=== PATIENT | female | born 1985 | race African-American/Black ===

== ENCOUNTER → 2017-10-09 | Outpatient (CLI) | payer OTHER ==
[2017-10-09 09:17] LABS: ALBUMIN 3.6 g/dL (3.5-5.0); BILIRUBIN,TOTAL 0.2 mg/dL (0.2-1.0); CREATININE 0.7 mg/dL (0.5-1.5); POTASSIUM 3.8 mmol/L (3.5-5.1); TOTAL PROTEIN, SERUM 7.1 g/dL (6.0-8.3)
== END | disposition home or self-care (01) ==
LOC: LAB 08:09
PROVIDERS: ATTEND Internal Medicine
DX: E78.2 Mixed hyperlipidemia (principal)
CPT/HCPCS: 36415; 80053; 80061

== ENCOUNTER → 2018-01-10 | Outpatient (CLI) | payer OTHER ==
[2018-01-10 09:23] LABS: BASOPHILS % (AUTO) 0.7 % (0.0-5.0); EOSINOPHILS % (AUTO) 2.5 % (0.0-8.0); HEMATOCRIT 36.5 % (36-48); MEAN CORPUSCULAR HEMOGLOBIN 31.2 pg (27.0-33.0); MEAN CORPUSCULAR HGB CONC 33.7 g/dL (32.0-36.0); MEAN CORPUSCULAR VOLUME 92.8 fL (79-99); MONOCYTES % (AUTO) 6.7 % (3.0-13.0); NEUTROPHILS % (AUTO) 61.1 % (40.0-77.0); PLATELET COUNT (AUTO) 244 K/uL (130-400); RED BLOOD CELL COUNT(AUTO) 3.93 MIL/uL (4.00-5.50); RED CELL DISTRIBUTION WIDTH 13.5 % (11.0-15.5); WHITE BLOOD COUNT (AUTO) 8.8 K/uL (4.8-10.8)
[2018-01-10 09:27] LABS: AMPHET/METH SCREEN,URINE NEGATIVE (NEGATIVE); BARBITURATE SCREEN, URINE NEGATIVE (NEGATIVE); BENZODIAZEPINES SCREEN,URINE NEGATIVE (NEGATIVE); CANNABINOID SCREEN,URINE POSITIVE (NEGATIVE); COCAINE SCREEN,URINE NEGATIVE (NEGATIVE); OPIATE SCREEN,URINE NEGATIVE (NEGATIVE); PHENCYCLIDINE SCREEN,URINE NEGATIVE (NEGATIVE)
[2018-01-10 09:35] LABS: ALBUMIN 3.6 g/dL (3.5-5.0); BILIRUBIN,TOTAL 0.5 mg/dL (0.2-1.0); CREATININE 0.8 mg/dL (0.5-1.5); POTASSIUM 3.7 mmol/L (3.5-5.1); TOTAL PROTEIN, SERUM 7.3 g/dL (6.0-8.3)
== END | disposition home or self-care (01) ==
LOC: RAH 08:59
PROVIDERS: ATTEND Internal Medicine
DX: N83.02 Follicular cyst of left ovary (principal); N83.01 Follicular cyst of right ovary
CPT/HCPCS: 36415; 76830; 80053; 80305; 84443; 84703; 85025

== ENCOUNTER → 2018-01-16 | Outpatient (CLI) | payer OTHER | END | disposition home or self-care (01) | LOC: RAH 01-11 15:02 | PROVIDERS: ATTEND Internal Medicine | DX: R10.2 Pelvic and perineal pain (principal) | CPT/HCPCS: 76856 ==

== ENCOUNTER → 2020-01-24 | Outpatient (CLI) | payer OTHER | END | disposition home or self-care (01) | LOC: RAH 11:35 | PROVIDERS: ATTEND Internal Medicine | DX: E04.2 Nontoxic multinodular goiter (principal) | CPT/HCPCS: 76536 ==

== ENCOUNTER → 2022-02-02 | Outpatient (CLI) | payer OTHER ==
[2022-02-02 09:42] LABS: BASOPHILS % (AUTO) 0.8 % (0.0-5.0); EOSINOPHILS % (AUTO) 4.9 % (0.0-8.0); HEMATOCRIT 40.4 % (36-48); LYMPHOCYTES % (AUTO) 32.9 % (21.0-51.0); MEAN CORPUSCULAR HEMOGLOBIN 29.2 pg (27.0-33.0); MEAN CORPUSCULAR HGB CONC 31.9 g/dL (32.0-36.0); MEAN CORPUSCULAR VOLUME 91.4 fL (79-99); MONOCYTES % (AUTO) 8.3 % (3.0-13.0); NEUTROPHILS % (AUTO) 52.9 % (40.0-77.0); PLATELET COUNT (AUTO) 309 K/uL (130-400); RED BLOOD CELL COUNT(AUTO) 4.42 MIL/uL (4.00-5.50); RED CELL DISTRIBUTION WIDTH 13.1 % (11.0-15.5); WHITE BLOOD COUNT (AUTO) 9.1 K/uL (4.8-10.8)
[2022-02-02 09:50] LABS: INR 0.99 (0.85-1.15); PROTHROMBIN TIME 10.8 SEC (9.6-11.6)
[2022-02-02 09:53] LABS: ALBUMIN 3.5 g/dL (3.5-5.0); BILIRUBIN,TOTAL 0.4 mg/dL (0.2-1.0); CREATININE 0.8 mg/dL (0.5-1.5); POTASSIUM 4.2 mmol/L (3.5-5.1); TOTAL PROTEIN, SERUM 7.3 g/dL (6.0-8.3)
== END | disposition home or self-care (01) ==
LOC: LAB 08:17
PROVIDERS: ATTEND Internal Medicine
DX: R93.2 Abnormal findings on diagnostic imaging of liver and biliary tract (principal); R12 Heartburn
CPT/HCPCS: 36415; 80053; 85025; 85610; 87338

== ENCOUNTER → 2022-05-09 | Outpatient (CLI) | payer OTHER | END | disposition home or self-care (01) | LOC: RAH 07:59 | PROVIDERS: ATTEND Internal Medicine Gastroenterology | DX: K82.4 Cholesterolosis of gallbladder (principal); R93.2 Abnormal findings on diagnostic imaging of liver and biliary tract | CPT/HCPCS: 76700 ==

== ENCOUNTER → 2022-06-22 | Outpatient (CLI) | payer OTHER | END | disposition home or self-care (01) | LOC: RAH 14:22 | PROVIDERS: ATTEND Internal Medicine | DX: E04.2 Nontoxic multinodular goiter (principal) | CPT/HCPCS: 76536 ==

== ENCOUNTER → 2022-06-28 | Outpatient (CLI) | payer OTHER ==
[2022-06-28 08:31] LABS: BASOPHILS % (AUTO) 1.3 % (0.0-5.0); EOSINOPHILS % (AUTO) 6.8 % (0.0-8.0); HEMATOCRIT 36.6 % (36-48); MEAN CORPUSCULAR HEMOGLOBIN 29.1 pg (27.0-33.0); MONOCYTES % (AUTO) 9.2 % (3.0-13.0); NEUTROPHILS % (AUTO) 51.4 % (40.0-77.0); PLATELET COUNT (AUTO) 290 K/uL (130-400); RED BLOOD CELL COUNT(AUTO) 4.02 MIL/uL (4.00-5.50); RED CELL DISTRIBUTION WIDTH 13.2 % (11.0-15.5); WHITE BLOOD COUNT (AUTO) 8.7 K/uL (4.8-10.8)
[2022-06-28 08:46] LABS: HEMOGLOBIN A1C 5.9 % (4.0-6.0)
[2022-06-28 09:12] LABS: ALBUMIN 3.2 g/dL (3.5-5.0); CREATININE 0.9 mg/dL (0.5-1.5); POTASSIUM 4.4 mmol/L (3.5-5.1); THYROID STIMULATING HORMONE 1.26 uIU/mL (0.36-3.74)
== END | disposition home or self-care (01) ==
LOC: LAB 08:07
PROVIDERS: ATTEND Surgery
DX: E66.01 Morbid (severe) obesity due to excess calories (principal)
CPT/HCPCS: 36415; 80053; 80061; 82306; 82607; 82728; 83036; 83540; 83550; 84439; 84443; 84590; 85025

== ENCOUNTER → 2023-07-19 | Outpatient (CLI) | payer OTHER ==
[2023-07-19 16:24] LABS: INFLUENZA TYPE A Negative For Type A (NEGATIVE); INFLUENZA TYPE B Negative For Type B (NEGATIVE)
[2023-07-19 16:26] LABS: COVID19 (SARS ANTIGEN RAPID) PRESUMPTIVE NEGATIVE (NEGATIVE)
== END | disposition home or self-care (01) ==
LOC: LAB 14:59
PROVIDERS: ATTEND Internal Medicine
DX: R05.9 Cough, unspecified (principal)
CPT/HCPCS: 87426; 87802; 87804

== ENCOUNTER → 2023-08-02 | Outpatient (CLI) | payer OTHER ==
[2023-08-02 08:32] LABS: BASOPHILS # (AUTO) 0.07 K/uL (0.00-0.20); BASOPHILS % (AUTO) 0.5 % (0.0-5.0); EOSINOPHILS # (AUTO) 0.22 K/uL (0.00-0.70); EOSINOPHILS % (AUTO) 1.4 % (0.0-8.0); HEMATOCRIT 38.9 % (36-48); IMMATURE GRANULOCYTE ABSOLUTE 0.06 K/uL (0-1); LYMPHOCYTES # (AUTO) 2.7 K/uL (1.0-4.8); LYMPHOCYTES % (AUTO) 17.9 % (21.0-51.0); MEAN CORPUSCULAR HEMOGLOBIN 29.8 pg (27.0-33.0); MEAN CORPUSCULAR HGB CONC 32.6 g/dL (32.0-36.0); MEAN CORPUSCULAR VOLUME 91.3 fL (79-99); MONOCYTES # (AUTO) 0.9 K/uL (0.1-1.0); MONOCYTES % (AUTO) 5.7 % (3.0-13.0); NEUTROPHILS # (AUTO) 11.3 K/uL (1.8-7.7); NEUTROPHILS % (AUTO) 74.1 % (40.0-77.0); PLATELET COUNT (AUTO) 415 K/uL (130-400); RED BLOOD CELL COUNT(AUTO) 4.26 MIL/uL (4.00-5.50); RED CELL DISTRIBUTION WIDTH 13.3 % (11.0-15.5); WHITE BLOOD COUNT (AUTO) 15.2 K/uL (4.8-10.8)
[2023-08-02 08:44] LABS: ALBUMIN 3.3 g/dL (3.5-5.0); BILIRUBIN,TOTAL 0.5 mg/dL (0.2-1.0); CREATININE 0.7 mg/dL (0.5-1.5); INR 0.98 (0.85-1.15); POTASSIUM 3.7 mmol/L (3.5-5.1); PROTHROMBIN TIME 11.4 SEC (9.6-11.6); TOTAL PROTEIN, SERUM 7.9 g/dL (6.0-8.3)
[2023-08-02 08:45] LABS: PARTIAL THROMBOPLASTIN TIME 30.6 SEC (26.3-35.5)
== END | disposition home or self-care (01) ==
LOC: RAH 07:54
PROVIDERS: ATTEND Internal Medicine
DX: K82.4 Cholesterolosis of gallbladder (principal); R19.7 Diarrhea, unspecified; K76.0 Fatty (change of) liver, not elsewhere classified
CPT/HCPCS: 36415; 76700; 80053; 85025; 85610; 85730; 87046; 87177; 87507

== ENCOUNTER 2023-09-06 15:45 | Inpatient (IN) | payer OTHER ==
[~2023-09-06] VITALS: Ht 167.6 cm; Wt 108.0 kg
[2023-09-06 16:02] LABS: HEMATOCRIT 41.9 % (36-48); MEAN CORPUSCULAR HEMOGLOBIN 29.7 pg (27.0-33.0); MEAN CORPUSCULAR HGB CONC 32.9 g/dL (32.0-36.0); MEAN CORPUSCULAR VOLUME 90.1 fL (79-99); RED BLOOD CELL COUNT(AUTO) 4.65 MIL/uL (4.00-5.50); RED CELL DISTRIBUTION WIDTH 13.3 % (11.0-15.5)
[2023-09-06 16:14] LABS: CREATININE 0.7 mg/dL (0.5-1.5); POTASSIUM 3.5 mmol/L (3.5-5.1)
[2023-09-06] MEDS ORDERED: MORPHINE 2 MG SYG IVP ONE (17:00)
[2023-09-06] MEDS ORDERED: ONDANSETRON 4MG INJ IVP ONE (17:00)
[2023-09-06] MEDS ORDERED: 0.9%NACL 1000ML 1,000 ML IV ONE ×2 (17:00→21:00)
[2023-09-06 17:01] LABS: APPEARANCE,URINE CLEAR (CLEAR); BILIRUBIN,URINE NEGATIVE (NEGATIVE); COLOR,URINE COLORLESS (YELLOW); GLUCOSE, URINE (UA) NEGATIVE (NEGATIVE); KETONES,URINE NEGATIVE (NEGATIVE); LEUKOCYTE ESTERASE ,URINE NEGATIVE Leu/uL (NEGATIVE); NITRATE,URINE NEGATIVE (NEGATIVE); OCCULT BLOOD,URINE NEGATIVE (NEGATIVE); PH,URINE 6.5 (5.0-8.0); PROTEIN,URINE NEGATIVE (NEGATIVE); UROBILINOGEN,URINE 0.2 mg/dL (0.2-1.0)
[2023-09-06 17:34] LABS: ADD UA MICROSCOPIC YES
[2023-09-06 17:36] LABS: BACTERIA,URINE RARE /HPF (None Seen); RBC,URINE 0-1 /HPF (0-1); SQUAMOUS EPITHELIAL CELL,UR RARE /HPF (0-2); WBC,URINE 0-1 /HPF (0-1)
[2023-09-06] MEDS ORDERED: DIATR MEGLU/DIATRIZOATE SODIUM 30 ML BOTTLE ONE (20:49)
[2023-09-06] MEDS: HALOPERIDOL INJ 5 MG/ML VIAL IV SCH (20:55)
[2023-09-06] MEDS ORDERED: ZOSYN 3.375GM +NS 50ML IV ONE (21:00)
[2023-09-06 21:12] LABS: ALBUMIN 3.9 g/dL (3.5-5.0); BILIRUBIN,DIRECT 0.1 mg/dL (0.0-0.3); BILIRUBIN,TOTAL 0.3 mg/dL (0.2-1.0); TOTAL PROTEIN, SERUM 8.1 g/dL (6.0-8.3)
[2023-09-06] MEDS ORDERED: DiphenhydrAMINE HCL 50 MG/ML VIAL ONE (21:34)
[2023-09-06] MEDS ORDERED: DiphenhydrAMINE HCL 50 MG/ML VIAL IV ONE (22:00)
[2023-09-06] MEDS ORDERED: IOHEXOL 350 MG/ML 100ML INFUS..BTL IV ONE (23:31)
[2023-09-07] VITALS (8 sets, daily range): BP systolic 123–180; BP diastolic 67–100; PULSE 99–115; RESP 16–20; O2SAT 93–99
[2023-09-07] MEDS ORDERED: ACETAMINOPHEN 325 MG TAB PO PRN (01:30)
[2023-09-07] MEDS ORDERED: ONDANSETRON 4MG INJ IV PRN (01:30)
[2023-09-07] MEDS ORDERED: MORPHINE 2 MG SYG IV PRN ×2 (01:30→11:00)
[2023-09-07] MEDS ORDERED: MORPHINE 4 MG SYG IV PRN (01:30)
[2023-09-07] MEDS: LACTATED RINGERS 1000ML 1,000 ML IV SCH ×3 (01:30→21:11)
[2023-09-07] MEDS ORDERED: MAGNESIUM 2GM PREMIX 50ML 50 ML IV PRN (02:00)
[2023-09-07] MEDS ORDERED: POTASSIUM CHLORIDE 10% ELIXIR 20 MEQ/15 ML UDCUP PO PRN (02:00)
[2023-09-07] MEDS ORDERED: POTASSIUM CHLORIDE 20MEQ/100ML 100 ML IV PRN (02:00)
[2023-09-07] MEDS ORDERED: KCL 20 MEQ ERTAB PO PRN (02:00)
[2023-09-07] MEDS: ZOSYN 3.375GM+NS 50ML 50 ML IV SCH ×3 (05:49→21:10)
[2023-09-07 05:58] LABS: BASOPHILS # (AUTO) 0.06 K/uL (0.00-0.20); BASOPHILS % (AUTO) 0.3 % (0.0-5.0); EOSINOPHILS # (AUTO) 0.02 K/uL (0.00-0.70); EOSINOPHILS % (AUTO) 0.1 % (0.0-8.0); HEMATOCRIT 38.2 % (36-48); IMMATURE GRANULOCYTE ABSOLUTE 0.12 K/uL (0-1); LYMPHOCYTES % (AUTO) 8.9 % (21.0-51.0); MEAN CORPUSCULAR HEMOGLOBIN 29.4 pg (27.0-33.0); MEAN CORPUSCULAR HGB CONC 33.5 g/dL (32.0-36.0); MEAN CORPUSCULAR VOLUME 87.8 fL (79-99); MONOCYTES # (AUTO) 1.1 K/uL (0.1-1.0); MONOCYTES % (AUTO) 4.7 % (3.0-13.0); NEUTROPHILS # (AUTO) 19.4 K/uL (1.8-7.7); NEUTROPHILS % (AUTO) 85.5 % (40.0-77.0); PLATELET COUNT (AUTO) 321 K/uL (130-400); RED BLOOD CELL COUNT(AUTO) 4.35 MIL/uL (4.00-5.50); RED CELL DISTRIBUTION WIDTH 13.3 % (11.0-15.5); WHITE BLOOD COUNT (AUTO) 22.7 K/uL (4.8-10.8)
[2023-09-07 06:12] LABS: INR 1.03 (0.85-1.15); PROTHROMBIN TIME 11.9 SEC (9.6-11.6)
[2023-09-07 06:13] LABS: PARTIAL THROMBOPLASTIN TIME 31.7 SEC (26.3-35.5)
[2023-09-07 06:36] LABS: CREATININE 0.6 mg/dL (0.5-1.5); MAGNESIUM 1.9 mg/dL (1.80-2.40); PHOSPHORUS 3.1 mg/dL (2.5-4.9); POTASSIUM 3.5 mmol/L (3.5-5.1)
[2023-09-07] MEDS ORDERED: LUMA42CA PO (08:03)
[2023-09-07] MEDS ORDERED: OMEP40CA21 PO (08:03)
[2023-09-07] MEDS ORDERED: BUPR-317 PO (08:03)
[2023-09-07] MEDS ORDERED: QUET50TA93 PO (08:03)
[2023-09-07] MEDS ORDERED: NALT50TA PO (08:03)
[2023-09-07] MEDS ORDERED: BUSP10TA3 PO (08:03)
[2023-09-07] MEDS ORDERED: TRAZ-185 PO (08:03)
[2023-09-07] MEDS: FAMOTIDINE 20MG VIAL IV SCH ×2 (08:30→21:10)
[2023-09-07] MEDS: HYDRALAZINE 20MG/ML VIAL IV PRN ×2 (08:32→16:00)
[2023-09-07] MEDS ORDERED: AMLODIPINE 5 MG TAB PO SCH (09:00)
[2023-09-07] MEDS: ACETAMINOPHEN 325 MG TAB PO PRN ×2 (10:49→16:00)
[2023-09-07] MEDS ORDERED: KCL 20 MEQ ERTAB PO ONE (11:00)
[2023-09-07] MEDS ORDERED: ZOSYN 3.375GM +NS 50ML IV SCH (14:30)
[2023-09-07] MEDS: HOME MEDICATION 1 EACH PO SCH (17:03)
[2023-09-07] MEDS: HALOPERIDOL INJ 5 MG/ML VIAL IV SCH (21:00)
[2023-09-07] MEDS: TRAZODONE HCL 50 MG TAB PO PRN (21:11)
[2023-09-07] MEDS: AMLODIPINE 5 MG TAB PO SCH (21:11)
[2023-09-08] VITALS (7 sets, daily range): BP systolic 108–142; BP diastolic 65–91; PULSE 71–121; RESP 16–20; O2SAT 98
[2023-09-08] MEDS: ZOSYN 3.375GM+NS 50ML 50 ML IV SCH ×3 (05:00→21:00)
[2023-09-08 05:43] LABS: BASOPHILS # (AUTO) 0.08 K/uL (0.00-0.20); BASOPHILS % (AUTO) 0.4 % (0.0-5.0); EOSINOPHILS # (AUTO) 0.15 K/uL (0.00-0.70); EOSINOPHILS % (AUTO) 0.7 % (0.0-8.0); HEMATOCRIT 40.3 % (36-48); LYMPHOCYTES # (AUTO) 3.4 K/uL (1.0-4.8); LYMPHOCYTES % (AUTO) 16.7 % (21.0-51.0); MEAN CORPUSCULAR HEMOGLOBIN 29.4 pg (27.0-33.0); MEAN CORPUSCULAR HGB CONC 32.8 g/dL (32.0-36.0); MEAN CORPUSCULAR VOLUME 89.8 fL (79-99); MONOCYTES # (AUTO) 1.5 K/uL (0.1-1.0); MONOCYTES % (AUTO) 7.1 % (3.0-13.0); NEUTROPHILS # (AUTO) 15.1 K/uL (1.8-7.7); NEUTROPHILS % (AUTO) 74.6 % (40.0-77.0); PLATELET COUNT (AUTO) 361 K/uL (130-400); RED BLOOD CELL COUNT(AUTO) 4.49 MIL/uL (4.00-5.50); RED CELL DISTRIBUTION WIDTH 13.6 % (11.0-15.5); WHITE BLOOD COUNT (AUTO) 20.3 K/uL (4.8-10.8)
[2023-09-08 06:18] LABS: ALBUMIN 3.5 g/dL (3.5-5.0); BILIRUBIN,TOTAL 0.9 mg/dL (0.2-1.0); CREATININE 0.7 mg/dL (0.5-1.5); MAGNESIUM 2.1 mg/dL (1.80-2.40); POTASSIUM 3.7 mmol/L (3.5-5.1); TOTAL PROTEIN, SERUM 7.7 g/dL (6.0-8.3)
[2023-09-08] MEDS: FAMOTIDINE 20MG VIAL IV SCH ×2 (08:53→21:00)
[2023-09-08] MEDS: AMLODIPINE 5 MG TAB PO SCH ×2 (08:53→21:00)
[2023-09-08] MEDS: ACETAMINOPHEN 325 MG TAB PO PRN ×2 (14:23→18:17)
[2023-09-08] MEDS: HOME MEDICATION 1 EACH PO SCH (17:00)
[2023-09-08] MEDS: LACTATED RINGERS 1000ML 1,000 ML IV SCH (18:09)
[2023-09-08] MEDS: HALOPERIDOL INJ 5 MG/ML VIAL IV SCH (21:00)
[2023-09-08] MEDS: TRAZODONE HCL 50 MG TAB PO PRN (21:24)
[2023-09-09] VITALS (8 sets, daily range): BP systolic 134–158; BP diastolic 70–88; PULSE 90–103; RESP 17–20; TEMP 97.9; O2SAT 98
[2023-09-09] MEDS: ZOSYN 3.375GM+NS 50ML 50 ML IV SCH ×3 (05:14→21:51)
[2023-09-09] MEDS: LACTATED RINGERS 1000ML 1,000 ML IV SCH (05:15)
[2023-09-09 06:08] LABS: HEMATOCRIT 37.1 % (36-48); MEAN CORPUSCULAR HEMOGLOBIN 29.7 pg (27.0-33.0); MEAN CORPUSCULAR HGB CONC 32.6 g/dL (32.0-36.0); MEAN CORPUSCULAR VOLUME 91.2 fL (79-99); RED BLOOD CELL COUNT(AUTO) 4.07 MIL/uL (4.00-5.50); RED CELL DISTRIBUTION WIDTH 13.5 % (11.0-15.5); WHITE BLOOD COUNT (AUTO) 13.3 K/uL (4.8-10.8)
[2023-09-09 06:35] LABS: ALBUMIN 3.1 g/dL (3.5-5.0); BILIRUBIN,TOTAL 0.8 mg/dL (0.2-1.0); CREATININE 0.7 mg/dL (0.5-1.5); MAGNESIUM 1.8 mg/dL (1.80-2.40); POTASSIUM 3.3 mmol/L (3.5-5.1)
[2023-09-09] MEDS: FAMOTIDINE 20MG VIAL IV SCH ×2 (09:30→21:51)
[2023-09-09] MEDS: AMLODIPINE 5 MG TAB PO SCH ×2 (09:30→21:51)
[2023-09-09] MEDS: ACETAMINOPHEN 325 MG TAB PO PRN ×2 (09:36→22:00)
[2023-09-09] MEDS ORDERED: KCL 20 MEQ ERTAB PO ONE (10:30)
[2023-09-09] MEDS: HOME MEDICATION 1 EACH PO SCH (16:53)
[2023-09-09] MEDS: HALOPERIDOL INJ 5 MG/ML VIAL IV SCH (21:00)
[2023-09-09] MEDS: TRAZODONE HCL 50 MG TAB PO PRN (21:51)
[2023-09-10 00:47] VITALS: BP 117/65; PULSE 98; RESP 16
[2023-09-10 04:28] VITALS: BP 119/60; PULSE 94; RESP 16
[2023-09-10 05:17] LABS: HEMATOCRIT 36.8 % (36-48); MEAN CORPUSCULAR HEMOGLOBIN 29.7 pg (27.0-33.0); MEAN CORPUSCULAR HGB CONC 32.6 g/dL (32.0-36.0); MEAN CORPUSCULAR VOLUME 91.1 fL (79-99); RED BLOOD CELL COUNT(AUTO) 4.04 MIL/uL (4.00-5.50); RED CELL DISTRIBUTION WIDTH 13.4 % (11.0-15.5); WHITE BLOOD COUNT (AUTO) 11.2 K/uL (4.8-10.8)
[2023-09-10] MEDS: ZOSYN 3.375GM+NS 50ML 50 ML IV SCH ×2 (05:29→13:00)
[2023-09-10 05:52] LABS: BILIRUBIN,TOTAL 0.6 mg/dL (0.2-1.0); CREATININE 0.6 mg/dL (0.5-1.5); MAGNESIUM 2.2 mg/dL (1.80-2.40); POTASSIUM 3.7 mmol/L (3.5-5.1); TOTAL PROTEIN, SERUM 6.9 g/dL (6.0-8.3)
[2023-09-10 08:00] VITALS: BP 151/80; PULSE 88; RESP 20
[2023-09-10 09:20] VITALS: O2SAT 98
[2023-09-10] MEDS: FAMOTIDINE 20MG VIAL IV SCH (10:11)
[2023-09-10] MEDS: AMLODIPINE 5 MG TAB PO SCH (10:11)
[2023-09-10] MEDS ORDERED: AMLO5TAB4 PO (11:53)
[2023-09-10] MEDS ORDERED: SULF1TAB42 PO (11:53)
[2023-09-10] MEDS ORDERED: METR-172 PO (11:53)
[2023-09-10 12:00] VITALS: BP 127/88; PULSE 99; RESP 20
[2023-09-10] MEDS: HOME MEDICATION 1 EACH PO SCH (13:04)
== END 2023-09-10 15:20 | disposition home or self-care (01) | DRG 392 ==
LOC: EDH 15:45 → EEVIPCON 15:45 → EDHIP 09-07 01:03 → 3BH 09-07 03:15
PROVIDERS: ADMIT Internal Medicine; ATTEND Internal Medicine
DX: K57.32 Diverticulitis of large intestine without perforation or abscess without bleeding (principal); I10 Essential (primary) hypertension; J45.909 Unspecified asthma, uncomplicated; K52.9 Noninfective gastroenteritis and colitis, unspecified; F32.A Depression, unspecified; F41.9 Anxiety disorder, unspecified; D27.0 Benign neoplasm of right ovary; Z88.1 Allergy status to other antibiotic agents; Z88.8 Allergy status to other drugs, medicaments and biological substances; Z79.899 Other long term (current) drug therapy
CPT/HCPCS: 36415; 74176; 74177; 76856; 80048; 80053; 80076; 81001; 82270; 82948; 83605; 83690; 83735; 84100; 84145; 84703; 85025; 85027; 85610; 85651; 85730; 86850; 86900; 86901; 87040; 87046; 93005; G0378; J0360; J1200; J1630; J2270; J2405; J2543; J3475; J3490; J7120; Q9963; Q9967

== ENCOUNTER → 2023-10-02 | Outpatient (CLI) | payer OTHER ==
[~2023-10-02] MED LIST: AMLO5TAB4 PO; BUPR-317 PO; BUSP10TA3 PO; IOHEXOL 350 MG/ML 100ML INFUS..BTL IV ONE; LUMA42CA PO; METR-172 PO; NALT50TA PO; OMEP40CA21 PO; QUET50TA93 PO; SULF1TAB42 PO; TRAZ-185 PO
[2023-10-02 09:57] LABS: BASOPHILS # (AUTO) 0.08 K/uL (0.00-0.20); BASOPHILS % (AUTO) 0.9 % (0.0-5.0); EOSINOPHILS # (AUTO) 0.26 K/uL (0.00-0.70); EOSINOPHILS % (AUTO) 2.8 % (0.0-8.0); HEMATOCRIT 37.4 % (36-48); IMMATURE GRANULOCYTE ABSOLUTE 0.02 K/uL (0-1); LYMPHOCYTES # (AUTO) 2.6 K/uL (1.0-4.8); LYMPHOCYTES % (AUTO) 27.6 % (21.0-51.0); MEAN CORPUSCULAR HGB CONC 32.4 g/dL (32.0-36.0); MEAN CORPUSCULAR VOLUME 89.7 fL (79-99); MONOCYTES # (AUTO) 0.6 K/uL (0.1-1.0); MONOCYTES % (AUTO) 6.5 % (3.0-13.0); NEUTROPHILS # (AUTO) 5.8 K/uL (1.8-7.7); PLATELET COUNT (AUTO) 374 K/uL (130-400); RED BLOOD CELL COUNT(AUTO) 4.17 MIL/uL (4.00-5.50); RED CELL DISTRIBUTION WIDTH 13.5 % (11.0-15.5); WHITE BLOOD COUNT (AUTO) 9.3 K/uL (4.8-10.8)
[2023-10-02 10:27] LABS: ALBUMIN 3.5 g/dL (3.5-5.0); BILIRUBIN,TOTAL 0.3 mg/dL (0.2-1.0); CREATININE 0.6 mg/dL (0.5-1.5); POTASSIUM 3.8 mmol/L (3.5-5.1); TOTAL PROTEIN, SERUM 7.6 g/dL (6.0-8.3)
== END | disposition home or self-care (01) ==
LOC: RAH 07:35
PROVIDERS: ATTEND Internal Medicine Gastroenterology
DX: K57.32 Diverticulitis of large intestine without perforation or abscess without bleeding (principal); R19.7 Diarrhea, unspecified; R10.84 Generalized abdominal pain
CPT/HCPCS: 74178; 86364; 82656; 80053; 85025; 82784; 86231 ×2; 83516; 36415; 83993; Q9967

== ENCOUNTER → 2023-10-26 | Outpatient (CLI) | payer OTHER ==
[~2023-10-26] MED LIST changes: -IOHEXOL 350 MG/ML 100ML INFUS..BTL IV ONE
[2023-10-26 12:47] LABS: BASOPHILS # (AUTO) 0.08 K/uL (0.00-0.20); BASOPHILS % (AUTO) 0.7 % (0.0-5.0); EOSINOPHILS # (AUTO) 0.17 K/uL (0.00-0.70); EOSINOPHILS % (AUTO) 1.4 % (0.0-8.0); HEMATOCRIT 38.4 % (36-48); IMMATURE GRANULOCYTE ABSOLUTE 0.04 K/uL (0-1); LYMPHOCYTES # (AUTO) 2.8 K/uL (1.0-4.8); LYMPHOCYTES % (AUTO) 22.8 % (21.0-51.0); MEAN CORPUSCULAR HEMOGLOBIN 28.8 pg (27.0-33.0); MEAN CORPUSCULAR HGB CONC 32.3 g/dL (32.0-36.0); MEAN CORPUSCULAR VOLUME 89.3 fL (79-99); MONOCYTES # (AUTO) 0.7 K/uL (0.1-1.0); MONOCYTES % (AUTO) 5.8 % (3.0-13.0); NEUTROPHILS # (AUTO) 8.4 K/uL (1.8-7.7); PLATELET COUNT (AUTO) 376 K/uL (130-400); RED CELL DISTRIBUTION WIDTH 14.2 % (11.0-15.5); WHITE BLOOD COUNT (AUTO) 12.2 K/uL (4.8-10.8)
[2023-10-26 13:07] LABS: HEMOGLOBIN A1C 5.6 % (4.0-6.0)
[2023-10-26 13:14] LABS: ALBUMIN 3.5 g/dL (3.5-5.0); BILIRUBIN,TOTAL 0.4 mg/dL (0.2-1.0); CREATININE 0.7 mg/dL (0.5-1.5); POTASSIUM 3.6 mmol/L (3.5-5.1); THYROID STIMULATING HORMONE 0.86 uIU/mL (0.36-3.74); TOTAL PROTEIN, SERUM 7.2 g/dL (6.0-8.3)
== END | disposition home or self-care (01) ==
LOC: LAB 10:39
PROVIDERS: ATTEND Internal Medicine
DX: Z00.00 Encounter for general adult medical examination without abnormal findings (principal); Z13.29 Encounter for screening for other suspected endocrine disorder; Z13.1 Encounter for screening for diabetes mellitus; E78.5 Hyperlipidemia, unspecified
CPT/HCPCS: 36415; 80053; 80061; 82043; 82570; 83036; 84443; 85025

== ENCOUNTER 2023-11-02 07:48 | Day surgery (SDC) | payer OTHER ==
[~2023-11-02] VITALS: Ht 165.1 cm; Wt 103.8 kg
[2023-11-02] VITALS (11 sets, daily range): BP systolic 109–157; BP diastolic 54–92; PULSE 67–84; RESP 15–18
[~2023-11-02 07:48] MED LIST changes: -BUPR-317 PO; -BUSP10TA3 PO; +ESCI5TAB16 PO; -METR-172 PO; -NALT50TA PO; -QUET50TA93 PO; -SULF1TAB42 PO
[2023-11-02] MEDS: 0.9%NACL 1000ML 1,000 ML IV ONE (09:31)
[2023-11-02] MEDS ORDERED: PROPOFOL 10 MG/ML 20ML VIAL IV ONE ×3 (11:19→11:41)
== END 2023-11-02 13:10 | disposition home or self-care (01) ==
LOC: ENDO 07:48 → DAH 07:48 → ENDO 13:10
PROVIDERS: ATTEND Internal Medicine Gastroenterology
DX: R19.7 Diarrhea, unspecified (principal); R93.3 Abnormal findings on diagnostic imaging of other parts of digestive tract; D12.3 Benign neoplasm of transverse colon; R12 Heartburn; K57.32 Diverticulitis of large intestine without perforation or abscess without bleeding; K59.00 Constipation, unspecified; K57.30 Diverticulosis of large intestine without perforation or abscess without bleeding; K31.89 Other diseases of stomach and duodenum; R14.0 Abdominal distension (gaseous); K29.70 Gastritis, unspecified, without bleeding; I10 Essential (primary) hypertension; E78.5 Hyperlipidemia, unspecified; K21.9 Gastro-esophageal reflux disease without esophagitis; F41.9 Anxiety disorder, unspecified; F32.A Depression, unspecified; K76.0 Fatty (change of) liver, not elsewhere classified; E66.01 Morbid (severe) obesity due to excess calories; Z79.899 Other long term (current) drug therapy; Z98.890 Other specified postprocedural states; Z87.891 Personal history of nicotine dependence; Z90.89 Acquired absence of other organs; Z68.38 Body mass index [BMI] 38.0-38.9, adult
CPT/HCPCS: 81025; 43239; 45380; 45385; J7030 ×2; J2704 ×3; A4620; A4215; A4223; A4657; A7002; A4222; A4221; A4663; A4606; J3490

== ENCOUNTER → 2024-04-03 | Outpatient (CLI) | payer OTHER | END | disposition home or self-care (01) | LOC: RAH 08:23 | PROVIDERS: ATTEND Internal Medicine | DX: Z12.31 Encounter for screening mammogram for malignant neoplasm of breast (principal) | CPT/HCPCS: 77067 ==

== ENCOUNTER → 2024-06-19 | Outpatient (CLI) | payer OTHER | END | disposition home or self-care (01) | LOC: RAH 10:02 | PROVIDERS: ATTEND Internal Medicine | DX: M54.16 Radiculopathy, lumbar region (principal) | CPT/HCPCS: 72100 ==